=== PATIENT | male | born 1975 | race Hispanic/Latino ===

== ENCOUNTER 2017-01-31 00:30 | Emergency (ER) | payer OTHER, SELFPAY ==
[2017-01-31] MEDS ORDERED: Lidocaine Viscous Sol 2% 15 ml UD Cup ONE (00:45)
[2017-01-31] MEDS ORDERED: Mag-Al Plus 1200 MG/1200 MG/120 MG/30 ML UDCUP ONE (00:45)
[2017-01-31] MEDS ORDERED: Lidocaine 2% Viscous Solution 10 ML, Mag Hydrox/Al Hydrox/Simeth 30 ML SSW SCH ×2 (01:00)
[2017-01-31 01:36] LABS: #Basophils 0.1 thou/uL (0.0-0.2); #Eosinphils 0.4 thou/uL (0.0-0.7); #Monocytes 0.5 thou/uL (0.11-0.59); #Neutrophils 2.9 thou/uL (1.40-6.50); %Basophils 1.3 % (0.0-1.0); %Eosinophils 6.1 % (0.0-10.0); %Lymphocytes 43.9 % (21.0-51.0); %Monocytes 6.9 % (0.0-10.0); %Neutrophils 41.8 % (42.0-75.0); Hemoglobin 15.2 g/dL (14.0-18.0); Mean Corpuscular HGB CONC 34.2 g/dL (32.0-36.0); Mean Corpuscular Hemoglobin 30.5 pg (27.0-31.0); Mean Corpuscular Volume 89.2 fl (80.0-94.0); Mean Platelet Volume 9.5 fL (7.4-10.4); Platelet Count 203 thou/uL (130-400); RBC Distribution Width 12.2 % (11.5-14.5); Red Blood Cell (RBC) Count 4.99 mill/uL (4.70-6.10); White Blood Cell (WBC) Count 6.9 thou/uL (4.8-10.8)
[2017-01-31 01:40] LABS: CKMB 0.9 ng/mL (0-6.6); Troponin I Less than 0.010 ng/mL (< 0.028)
[2017-01-31 01:59] LABS: Amphetamine Not Detected (NotDetected); Barbiturates Screen Not Detected (NotDetected); Benzodiazepine Screen Not Detected (NotDetected); Cocaine Metabolite Screen Not Detected (NotDetected); Medtox Control Line Valid? VALID (VALID); Methadone Not Detected (NotDetected); Methamphetamine Not Detected (NotDetected); Opiate Screen Not Detected (NotDetected); Oxycodone Screen Not Detected (NotDetected); Phencyclidine (PCP) Not Detected (NotDetected); THC/Cannabinoid Screen Not Detected (NotDetected); Tricyclic Screen Not Detected (NotDetected)
[2017-01-31 02:01] LABS: ALT (SGPT) 24 U/L (8-55); AST (SGOT) 16 U/L (5-34); Albumin 4.5 g/dL (3.5-5.0); Alkaline Phosphatase 52 U/L (40-150); Anion Gap 15 mmol/L (10-20); BUN (Urea Nitrogen) 13 mg/dL (8.9-20.6); Bilirubin, Total 0.3 mg/dL (0.2-1.2); Calc. Creatinine Clearance 0 mL/min (70-130); Calcium 9.5 mg/dL (7.8-10.44); Carbon Dioxide 29 mmol/L (22-29); Chloride 102 mmol/L (98-107); Estimated GFR-MDRD 65; Globulin 2.7 g/dL (2.4-3.5); Glucose 124 mg/dL (70-105); Potassium 3.7 mmol/L (3.5-5.1); Protein, Total 7.2 g/dL (6.0-8.3); Sodium 142 mmol/L (136-145)
--- NOTE | 2017-01-31 08:16 | RAD ---
PORTABLE CHEST: DATE: 01/31/17. PROVIDED CLINICAL HISTORY: Chest pain. FINDINGS: Comparison is made with the study dated 03/08/16. Cardiac and mediastinal silhouette is within kailee l limits. No focal consolidation, pleural fluid, or pneumothorax apparent. IMPRESSION: No evidence for an acute cardiopulmonary process. POS: OFF
== END 2017-01-31 02:13 | disposition home or self-care (01) ==
LOC: MADERS 00:30
DX: R07.89 Other chest pain (principal); F41.9 Anxiety disorder, unspecified; I10 Essential (primary) hypertension
CPT/HCPCS: 36415; 71010; 80053; 80306; 82553; 84484; 85025; 93005

== ENCOUNTER 2017-04-19 17:54 | Emergency (ER) | payer SELFPAY ==
[2017-04-19] MEDS ORDERED: Naproxen 500 MG TAB ONE (18:20)
== END 2017-04-19 20:01 | disposition home or self-care (01) ==
LOC: MADERS 17:54
DX: S46.212A Strain of muscle, fascia and tendon of other parts of biceps, left arm, initial encounter (principal); I10 Essential (primary) hypertension; Z79.899 Other long term (current) drug therapy; X50.1XXA Overexertion from prolonged static or awkward postures, initial encounter; Y92.39 Other specified sports and athletic area as the place of occurrence of the external cause
CPT/HCPCS: 99283

== ENCOUNTER 2017-09-22 04:24 | Emergency (ER) | payer OTHER, SELFPAY ==
[2017-09-22] MEDS ORDERED: Ketorolac Tromethamine 30 MG/ML VIAL ONE (05:13)
[2017-09-22 05:37] LABS: #Basophils 0.1 thou/uL (0.0-0.2); #Eosinphils 0.6 thou/uL (0.0-0.7); #Lymphocytes 3.2 thou/uL (1.20-3.40); #Monocytes 0.4 thou/uL (0.11-0.59); #Neutrophils 2.1 thou/uL (1.40-6.50); %Basophils 2.3 % (0.0-1.0); %Eosinophils 9.5 % (0.0-10.0); %Lymphocytes 49.3 % (21.0-51.0); %Monocytes 6.2 % (0.0-10.0); %Neutrophils 32.7 % (42.0-75.0); Hemoglobin 15.8 g/dL (14.0-18.0); Mean Corpuscular HGB CONC 33.6 g/dL (32.0-36.0); Mean Corpuscular Hemoglobin 30.1 pg (27.0-31.0); Mean Corpuscular Volume 89.6 fl (80.0-94.0); Mean Platelet Volume 8.5 fL (7.4-10.4); Platelet Count 212 thou/uL (130-400); RBC Distribution Width 12.4 % (11.5-14.5); Red Blood Cell (RBC) Count 5.24 mill/uL (4.70-6.10); White Blood Cell (WBC) Count 6.5 thou/uL (4.8-10.8)
[2017-09-22 05:55] LABS: ALT (SGPT) 43 U/L (8-55); AST (SGOT) 25 U/L (5-34); Albumin 4.3 g/dL (3.5-5.0); Alkaline Phosphatase 41 U/L (40-150); Anion Gap 16 mmol/L (10-20); BUN (Urea Nitrogen) 17 mg/dL (8.9-20.6); Bilirubin, Total 0.3 mg/dL (0.2-1.2); Calc. Creatinine Clearance 0 mL/min (70-130); Calcium 9.3 mg/dL (7.8-10.44); Carbon Dioxide 25 mmol/L (22-29); Chloride 103 mmol/L (98-107); Estimated GFR-MDRD 77; Globulin 3.1 g/dL (2.4-3.5); Glucose 105 mg/dL (70-105); Potassium 3.8 mmol/L (3.5-5.1); Protein, Total 7.4 g/dL (6.0-8.3); Sodium 140 mmol/L (136-145)
[2017-09-22 06:00] LABS: MONO NEGATIVE CONTROL ZONE White (Negative) (White); MONO POSITIVE CONTROL Pink Line (Positive) (PINK/RED); Mononucleosis NEGATIVE (NEGATIVE)
[2017-09-22 06:05] LABS: Bilirubin Negative (Negative); Blood, Urine Negative (Negative); Clarity Clear (Clear); Glucose, Urine (Dipstick) Negative (Negative); Leukocyte Negative (Negative); Nitrite Negative (Negative); Protein, Urine (Dipstick) Trace mg/dL (Neg-Trace); Specific Gravity, Urine 1.025 (1.005-1.030); Urobilinogen 0.2 mg/dL (0.2-1.0); pH, Urine 5.5 (5.0-9.0)
[2017-09-22] MEDS ORDERED: traMADol HCl 50 MG TAB ONE (07:06)
[2017-09-22] MEDS ORDERED: AMOXicillin 250 MG CAP ONE (07:06)
--- NOTE | 2017-09-22 08:09 | CT ---
PRELIMINARY REPORT/[facility]/EMERGENCY AFTER HOURS PROCEDURE: EXAM: CT Head Without Intravenous Contrast CLINICAL HISTORY: 42 years old, male; Pain; Headache; Headache not specified; Patient HX: Patient has had headache, jaw pain and neck pain for several days; Pressure behind eyes; Additional info: Na TECHNIQUE: Axial computed tomography images of the head/brain without intravenous contrast. All CT scans at this facility use one or more dose reduction techniques, viz.: automated exposure control; ma/kV adjustme nt per patient size (including targeted exams where dose is matched to indication; i.e. head); or ite rative reconstruction technique. COMPARISON: No relevant prior studies available. FINDINGS: Brain: Presumed right sided retrocerebellar arachnoid cyst measuring up to 4.2 x 2.9 cm No hemorrhage . No significant white matter disease. No edema. Ventricles: Unremarkable. No ventriculomegaly. Bones/joints: Unremarkable. No acute fracture. Soft tissues: Unremarkable. Sinuses: Unremarkable as visualized. No acute sinusitis. Mastoid air cells: Unremarkable as visualized. No mastoid effusion. IMPRESSION: Presumed right retrocerebellar arachnoid cyst. Comparison with prior images would be helpful to asses s for stability No intracranial hemorrhage.Please see discussion above. Thank you for allowing us to participate in the care of your patient. Dictated and Authenticated by: Reilly Hardy MD 09/22/2017 5:30 AM Central Time ([place] & [place]) FINAL REPORT HEAD CT WITHOUT CONTRAST: DATE: 09/22/17. COMPARISON: 05/13/12. HISTORY: Headache, pressure behind eyes. FINDINGS: I agree with the preliminary [facility] report dictated by Dr. Reilly Hardy. Stable lobulated CSF density in posterior fossa centrally and right of midline suggests stable posterior fossa arachnoid cyst, un changed since 2011. Imaged paranasal sinuses/mastoid air cells well aerated. No displaced calvarial fracture, intracranial hemorrhage, midline shift, or mass effect. IMPRESSION: No acute findings. POS: [facility]
== END 2017-09-22 07:35 | disposition home or self-care (01) ==
LOC: MADERS 04:24
DX: G93.0 Cerebral cysts (principal); R59.0 Localized enlarged lymph nodes; I10 Essential (primary) hypertension; Z79.899 Other long term (current) drug therapy
CPT/HCPCS: 36415; 70450; 80053; 81003; 85025; 85652; 86308; 96374; J1885

== ENCOUNTER 2018-05-01 20:11 | Emergency (ER) | payer SELFPAY ==
[2018-05-01] MEDS ORDERED: Ibuprofen 800 MG TAB ONE (20:31)
== END 2018-05-01 20:41 | disposition home or self-care (01) ==
LOC: MADERS 20:11
DX: H66.91 Otitis media, unspecified, right ear (principal); I10 Essential (primary) hypertension
CPT/HCPCS: 99282

== ENCOUNTER 2018-05-03 03:25 | Emergency (ER) | payer SELFPAY ==
[2018-05-03] MEDS ORDERED: Promethazine HCl 25 MG/ML VIAL ONE (04:12)
[2018-05-03] MEDS ORDERED: Neomycin/Polymyxin/HC Otic Solution 10 ML BOT ONE (04:12)
[2018-05-03] MEDS ORDERED: cefTRIAXone\\ROCEPHIN 1 GM VIAL ONE (04:12)
[2018-05-03] MEDS ORDERED: Lidocaine 1% 20 ML MDV ONE (04:12)
[2018-05-03] MEDS ORDERED: Ketorolac Tromethamine 60 MG/2 ML VIAL ONE (04:12)
== END 2018-05-03 04:51 | disposition home or self-care (01) ==
LOC: MADERS 03:25
DX: H60.93 Unspecified otitis externa, bilateral (principal); H66.93 Otitis media, unspecified, bilateral; I10 Essential (primary) hypertension
CPT/HCPCS: 96372; J0696; J1885; J2001; J2550

== ENCOUNTER 2018-06-12 11:57 | Emergency (ER) | payer SELFPAY ==
[~2018-06-12 11:57] MED LIST: Sodium Chloride 0.9% 1,000 ML BAG ONE
[2018-06-12] MEDS ORDERED: Famotidine In NaCl 20 mg/50 ml Premix Bag ONE (12:18)
[2018-06-12 12:19] LABS: #Basophils 0.1 thou/uL (0.0-0.2); #Eosinphils 0.5 thou/uL (0.0-0.7); #Lymphocytes 2.4 thou/uL (1.20-3.40); #Monocytes 0.3 thou/uL (0.11-0.59); #Neutrophils 2.9 thou/uL (1.40-6.50); %Basophils 1.7 % (0.0-1.0); %Eosinophils 8.7 % (0.0-10.0); %Lymphocytes 38.1 % (21.0-51.0); %Monocytes 4.6 % (0.0-10.0); %Neutrophils 46.9 % (42.0-75.0); Hemoglobin 14.5 g/dL (14.0-18.0); Mean Corpuscular HGB CONC 32.1 g/dL (32.0-36.0); Mean Corpuscular Hemoglobin 28.6 pg (27.0-31.0); Mean Corpuscular Volume 89.2 fL (78.0-98.0); Mean Platelet Volume 9.1 fL (7.4-10.4); Platelet Count 241 thou/uL (130-400); RBC Distribution Width 11.9 % (11.5-14.5); Red Blood Cell (RBC) Count 5.05 mill/uL (4.70-6.10); White Blood Cell (WBC) Count 6.2 thou/uL (4.8-10.8)
[2018-06-12 12:36] LABS: Anion Gap 14 mmol/L (10-20); BUN (Urea Nitrogen) 16 mg/dL (8.9-20.6); Calc. Creatinine Clearance 0 mL/min (70-130); Calcium 9.9 mg/dL (7.8-10.44); Carbon Dioxide 27 mmol/L (22-29); Chloride 103 mmol/L (98-107); Estimated GFR-MDRD 68; Glucose 100 mg/dL (70-105); Potassium 4.2 mmol/L (3.5-5.1); Sodium 140 mmol/L (136-145)
[2018-06-12 12:41] LABS: CKMB 1.8 ng/mL (0-6.6); Troponin I Less than 0.010 ng/mL (< 0.028)
--- NOTE | 2018-06-12 13:37 | RAD ---
PORTABLE CHEST: History: Chest pain. Comparison: 01-31-17 FINDINGS: Heart size is within normal limits considering portable technique. Mediastinal structures are unremar kable. The lungs are clear of infiltrates. IMPRESSION: No active intrathoracic disease. POS: [facility]
== END 2018-06-12 13:04 | disposition home or self-care (01) ==
LOC: MADERS 11:57
DX: K21.0 Gastro-esophageal reflux disease with esophagitis (principal); I10 Essential (primary) hypertension; Z79.899 Other long term (current) drug therapy
CPT/HCPCS: 71045; 80048; 82553; 83880; 84484; 85025; 85379; 93005; 94760; 96361; 96374; J7050

== ENCOUNTER 2019-11-25 16:17 | Emergency (ER) | payer SELFPAY ==
--- NOTE | 2019-11-25 16:49 | RAD ---
RADIOGRAPH CHEST 1 VIEW: DATE: 11/25/2019 HISTORY: 44-year-old male with chest pain FINDINGS: There are no airspace densities, pulmonary edema, pneumothorax, or cardiomegaly. The lateral costophr enic angles are sharp. IMPRESSION: No acute cardiopulmonary findings.
[2019-11-25 17:03] LABS: CK (CPK) 201 U/L (30-200); Lipase 211 U/L (8-78)
[2019-11-25 17:10] LABS: Hemoglobin 13.7 g/dL (14.0-18.0); Mean Corpuscular Volume 89.2 fL (78.0-98.0); Red Blood Cell (RBC) Count 4.72 mill/uL (4.70-6.10); White Blood Cell (WBC) Count 6.1 thou/uL (4.8-10.8)
[2019-11-25 17:11] LABS: #Basophils 0.1 thou/uL (0.0-0.2); #Eosinphils 0.4 thou/uL (0.0-0.7); #Lymphocytes 2.5 thou/uL (1.20-3.40); #Monocytes 0.4 thou/uL (0.11-0.59); #Neutrophils 2.7 thou/uL (1.40-6.50); %Basophils 1.6 % (0.0-1.0); %Lymphocytes 40.9 % (21.0-51.0); %Monocytes 6.4 % (0.0-10.0); %Neutrophils 45.1 % (42.0-75.0); Mean Corpuscular HGB CONC 32.5 g/dL (32.0-36.0); Mean Platelet Volume 9.8 fL (7.4-10.4); Platelet Count 193 thou/uL (130-400); RBC Distribution Width 12.2 % (11.5-14.5)
[2019-11-25 18:21] LABS: Anion Gap 15 mmol/L (10-20); BUN (Urea Nitrogen) 11 mg/dL (8.9-20.6); Calc. Creatinine Clearance 0 mL/min (70-130); Carbon Dioxide 27 mmol/L (22-29); Chloride 101 mmol/L (98-107); Potassium 4.3 mmol/L (3.5-5.1); Sodium 139 mmol/L (136-145)
[2019-11-25 18:22] LABS: ALT (SGPT) 22 U/L (8-55); AST (SGOT) 17 U/L (5-34); Albumin 4.6 g/dL (3.5-5.0); Alkaline Phosphatase 42 U/L (40-110); Bilirubin, Total 0.3 mg/dL (0.2-1.2); Calcium 9.3 mg/dL (7.8-10.44); Estimated GFR-MDRD 66; Globulin 2.6 g/dL (2.4-3.5); Glucose 115 mg/dL (70-105); Protein, Total 7.2 g/dL (6.0-8.3)
--- NOTE | 2019-11-25 18:41 | CT ---
CT OF THE ABDOMEN AND PELVIS WITHOUT IV CONTRAST INDICATION: Abdominal pain and elevated lipase COMPARISON: None FINDINGS: The lack of IV contrast limits evaluation of the solid organs of the abdomen and pelvis. ABDOMEN: Lung bases: Clear Liver: No focal lesion. Gallbladder: Contracted Pancreas: Normal. Adrenal glands: Normal. Spleen: Normal. Kidneys and ureters: Normal. No hydronephrosis. Vasculature: Mild vascular Lymph nodes:No lymphadenopathy. Free fluid in abdomen:No free fluid is evident. PELVIS: Small and large bowel: Normal Appendix:Normal Bladder: Normal. Rectal and perirectal soft tissues:Normal. Reproductive structures: Normal. Free fluid in pelvis: No free fluid is evident. Lymphadenopathy pelvis: No lymphadenopathy is evident. Osseous structures: No acute osseous abnormality. No destructive osteolytic or osteoblastic lesion i s identified. Soft tissues:Normal. IMPRESSION: 1. No acute abnormality.
== END 2019-11-25 18:55 | disposition home or self-care (01) ==
LOC: MADERS 16:17
DX: R07.9 Chest pain, unspecified (principal); I10 Essential (primary) hypertension; Z79.82 Long term (current) use of aspirin; Z79.899 Other long term (current) drug therapy
CPT/HCPCS: 36415; 71045; 74176; 80053; 82550; 83690; 84484; 85025; 93005

== ENCOUNTER 2020-03-27 08:00 | Emergency (ER) | payer SELFPAY ==
[2020-03-27] MEDS ORDERED: Prochlorperazine 10 MG/2 ML VIAL ONE (08:43)
[2020-03-27] MEDS ORDERED: diphenhydrAMINE 50 MG/ML VIAL ONE (08:43)
[2020-03-27 08:53] LABS: #Basophils 0.1 thou/uL (0.0-0.2); #Eosinphils 0.7 thou/uL (0.0-0.7); #Lymphocytes 2.5 thou/uL (1.20-3.40); #Monocytes 0.6 thou/uL (0.11-0.59); #Neutrophils 3.1 thou/uL (1.40-6.50); %Eosinophils 10.1 % (0.0-10.0); %Lymphocytes 35.8 % (21.0-51.0); %Monocytes 7.9 % (0.0-10.0); %Neutrophils 44.1 % (42.0-75.0); Mean Corpuscular HGB CONC 30.9 g/dL (32.0-36.0); Mean Corpuscular Hemoglobin 28.6 pg (27.0-31.0); Mean Corpuscular Volume 92.5 fL (78.0-98.0); Mean Platelet Volume 11.2 fL (7.4-10.4); Platelet Count 227 thou/uL (130-400); Red Blood Cell (RBC) Count 4.91 mill/uL (4.70-6.10); White Blood Cell (WBC) Count 6.9 thou/uL (4.8-10.8)
--- NOTE | 2020-03-27 08:54 | CT ---
Head CT without contrast 03/27/2020: COMPARISON: 09/22/2017 HISTORY: Sudden headache, hypertension TECHNIQUE: Axial CT imaging at 5 mm intervals from vertex through skull base without contrast FINDINGS: Stable posterior fossa arachnoid cyst on the right. The visualized paranasal sinuses are un remarkable. No intracranial hemorrhage, midline shift, or mass effect. No acute findings. IMPRESSION: Stable head CT-no acute findings.
[2020-03-27 09:00] LABS: PTT 29.2 sec (22.9-36.1); Prothrombin Time 12.9 sec (12.0-14.7)
[2020-03-27 09:06] LABS: ALT (SGPT) 36 U/L (8-55); AST (SGOT) 24 U/L (5-34); Albumin 4.5 g/dL (3.5-5.0); Alkaline Phosphatase 39 U/L (40-110); Anion Gap 14 mmol/L (10-20); BUN (Urea Nitrogen) 18 mg/dL (8.9-20.6); Bilirubin, Total 0.5 mg/dL (0.2-1.2); Calc. Creatinine Clearance 0 mL/min (70-130); Calcium 9.1 mg/dL (7.8-10.44); Carbon Dioxide 28 mmol/L (22-29); Chloride 102 mmol/L (98-107); Estimated GFR-MDRD 56; Globulin 2.6 g/dL (2.4-3.5); Glucose 96 mg/dL (70-105); Potassium 3.8 mmol/L (3.5-5.1); Protein, Total 7.1 g/dL (6.0-8.3); Sodium 140 mmol/L (136-145)
[2020-03-27] MEDS ORDERED: Lidocaine 1% 20 ML MDV ONE (09:08)
[2020-03-27] MEDS ORDERED: Fentanyl 100 MCG/2 ML VIAL ONE (09:13)
[2020-03-27 12:46] LABS: CSF Source CSF; Clarity Hazy (Clear); Tube # 4
[2020-03-27 12:50] LABS: CSF Source CSF; Clarity Hazy (Clear); Tube # 1
[2020-03-27 12:56] LABS: CSF, Glucose 53 mg/dl (40-70); CSF, Protein 61 mg/dL (15-40)
[2020-03-27 13:15] LABS: Color Of CSF Supernatant COLORLESS (Colorless); Tube # 2; Unspun CSF Color COLORLESS (Colorless)
== END 2020-03-27 14:05 | disposition home or self-care (01) ==
LOC: MADERS 08:00
DX: G43.909 Migraine, unspecified, not intractable, without status migrainosus (principal); I10 Essential (primary) hypertension
CPT/HCPCS: 62270; 70450; 80053; 82945; 84157; 85025; 85610; 85730; 87070; 87205; 89051; 96374; 96375; J0780; J1200; J2001; J3010

== ENCOUNTER 2020-12-13 03:09 | Emergency (ER) | payer SELFPAY ==
[2020-12-13] MEDS ORDERED: ALPRAZolam 0.5 MG TAB ONE (03:34)
[2020-12-13] MEDS ORDERED: Acetaminophen 500 MG TAB ONE (03:34)
[2020-12-13] MEDS ORDERED: Ondansetron ODT 4 MG TAB ONE (04:18)
== END 2020-12-13 04:45 | disposition home or self-care (01) ==
LOC: MADERS 03:09
DX: R07.89 Other chest pain (principal); F41.9 Anxiety disorder, unspecified; I10 Essential (primary) hypertension; Z79.899 Other long term (current) drug therapy
CPT/HCPCS: 93005; Q0162

== ENCOUNTER 2022-04-28 22:01 | Emergency (ER) | payer SELFPAY ==
[~2022-04-28 22:01] MED LIST changes: +Iopamidol 370 76% 100 ML VIAL ONE; -Sodium Chloride 0.9% 1,000 ML BAG ONE
[2022-04-28] MEDS ORDERED: Fluorescein Opthalmic Strip ONE (22:12)
[2022-04-28] MEDS ORDERED: Tetracaine 0.5% PF 4 ML BOT ONE (22:12)
[2022-04-28] MEDS ORDERED: Sodium Chloride 0.9% 1,000 ML ONE (22:29)
[2022-04-28 22:36] LABS: #Basophils 0.1 thou/uL (0.0-0.2); #Eosinphils 0.4 thou/uL (0.0-0.7); #Lymphocytes 2.4 thou/uL (1.20-3.40); #Monocytes 0.4 thou/uL (0.11-0.59); #Neutrophils 3.2 thou/uL (1.40-6.50); %Basophils 1.9 % (0.0-1.0); %Eosinophils 6.3 % (0.0-10.0); %Lymphocytes 36.8 % (21.0-51.0); %Monocytes 6.3 % (0.0-10.0); %Neutrophils 48.7 % (42.0-75.0); Hemoglobin 15.3 g/dL (14.0-18.0); Mean Corpuscular HGB CONC 33.5 g/dL (32.0-36.0); Mean Corpuscular Hemoglobin 30.3 pg (27.0-31.0); Mean Corpuscular Volume 90.2 fL (78.0-98.0); Mean Platelet Volume 11.4 fL (7.4-10.4); Platelet Count 204 thou/uL (130-400); RBC Distribution Width 12.4 % (11.5-14.5); Red Blood Cell (RBC) Count 5.07 mill/uL (4.70-6.10); White Blood Cell (WBC) Count 6.6 thou/uL (4.8-10.8)
[2022-04-28 22:51] LABS: ALT (SGPT) 28 U/L (8-55); AST (SGOT) 19 U/L (5-34); Albumin 4.4 g/dL (3.5-5.0); Alkaline Phosphatase 53 U/L (40-110); Anion Gap 17 mmol/L (10-20); BUN (Urea Nitrogen) 17 mg/dL (8.9-20.6); Bilirubin, Total 0.3 mg/dL (0.2-1.2); Calc. Creatinine Clearance 0 mL/min (70-130); Calcium 9.4 mg/dL (7.8-10.44); Carbon Dioxide 25 mmol/L (22-29); Chloride 104 mmol/L (98-107); Estimated GFR 82; Globulin 3.5 g/dL (2.4-3.5); Glucose 123 mg/dL (70-105); Potassium 3.9 mmol/L (3.5-5.1); Protein, Total 7.9 g/dL (6.0-8.3); Sodium 142 mmol/L (136-145)
[2022-04-28] MEDS ORDERED: Ketorolac Tromethamine 30 MG/ML VIAL ONE (23:27)
[2022-04-28] MEDS ORDERED: diphenhydrAMINE 50 MG/ML VIAL ONE (23:27)
[2022-04-28] MEDS ORDERED: Metoclopramide HCl 10 MG/2 ML VIAL ONE (23:27)
[2022-04-29] MEDS ORDERED: valACYclovir 500 MG TAB PO SCH (00:15)
== END 2022-04-29 00:22 | disposition home or self-care (01) ==
LOC: MADERS 22:01
DX: B02.9 Zoster without complications (principal); I10 Essential (primary) hypertension; Z79.899 Other long term (current) drug therapy
CPT/HCPCS: 70460; 80053; 83735; 85025; 96361; 96374; 96375; J1200; J1885; J2765; J7050; Q9967